=== PATIENT | female | born 1985 | race Caucasian/White ===

== ENCOUNTER 2019-05-21 03:34 | Emergency (ER) | payer MEDICAID ==
[~2019-05-21] VITALS: Ht 167.6 cm; Wt 52.3 kg
[2019-05-21 03:41] VITALS: Ht 167.6 cm; Wt 52.3 kg
[2019-05-21] MEDS ORDERED: ALBUTEROL SULF8.5 GM INH (03:44)
[2019-05-21] MEDS ORDERED: PROPRANOLOL HCL20 MG PO (03:44)
[2019-05-21] MEDS ORDERED: AMOXICILLIN500 M1 PO (03:44)
[2019-05-21 04:27] LABS: BASOPHILS 0.4 % (0-2); EOSINOPHILS 9.1 % (0-7); HEMATOCRIT 38.8 % (36.0-48.0); HEMOGLOBIN 13.4 g/dL (12-16); IMMATURE GRANULOCYTES 0.3 % (0-5); LYMPHOCYTES 32.1 % (15-50); MCH 32.4 pg (26.0-34.0); MCHC 34.5 g/dL (31.0-37.0); MCV 93.7 fL (80.0-100.0); MEAN PLATELET VOLUME 9.1 fL (7.4-10.4); MONOCYTES 7.8 % (2-11); NEUTROPHILS 50.3 % (40-80); RBC 4.14 10x6/uL (4.00-5.40); RDW 12.9 % (11.5-14.5); WBC 7.2 10x3/uL (4.8-10.8)
[2019-05-21 04:33] LABS: PLATELET COUNT 333 10x3/uL (130-400)
[2019-05-21 04:37] LABS: CALC OSMOLALITY 273 mosm/kg (275-300); CALCIUM 8.7 mg/dL (8.5-10.1); CARBON DIOXIDE 28.4 mmol/L (21.0-32.0); CHLORIDE - SERUM 104 mmol/L (98-107); CREATININE - SERUM 0.6 mg/dL (0.6-1.3); GLUCOSE 113 mg/dL (74-106); POTASSIUM - SERUM 3.5 mmol/L (3.5-5.1); SODIUM 138 mmol/L (136-145); UREA NITROGEN 5 mg/dL (7-18); eGFR NON AFRICAN AMERICAN > 90 mL/min (90-120)
[2019-05-21 04:52] LABS: ALBUMIN 3.5 g/dL (3.4-5.0); ALKALINE PHOSPHATASE 64 U/L (46-116); ALT (SGPT) 29 U/L (10-68); BILIRUBIN - TOTAL 0.28 mg/dL (0.2-1.3); PROTEIN - SERUM 7.5 g/dL (6.4-8.2); THYROID STIMULATING HORMONE 2.02 uIU/mL (0.36-3.74)
[2019-05-21 04:56] LABS: TROPONIN-I < 0.017 ng/mL (0.000-0.060)
[2019-05-21 05:23] VITALS: BP 143/95
== END 2019-05-21 05:23 | disposition home or self-care (01) ==
LOC: D.ER 03:34
PROVIDERS: Family Medicine
DX: R07.89 Other chest pain (principal)

== ENCOUNTER 2019-09-07 23:58 | Emergency (ER) | payer MEDICAID ==
[~2019-09-07] VITALS: Ht 167.6 cm; Wt 52.3 kg
[~2019-09-07 23:58] MED LIST: ALBUTEROL SULF8.5 GM INH; AMOXICILLIN500 M1 PO; PROPRANOLOL HCL20 MG PO
[2019-09-08 00:08] VITALS: Ht 167.6 cm; Wt 52.3 kg
[2019-09-08] MEDS ORDERED: AMOXICILLIN875 MG PO (00:38)
[2019-09-08] MEDS ORDERED: STERAPRED DS 1010 MG PO (00:38)
[2019-09-08] MEDS ORDERED: MUCINEX DM ER1 EAC1 PO (00:38)
[2019-09-08 00:55] VITALS: BP 138/94
== END 2019-09-08 00:55 | disposition home or self-care (01) ==
LOC: D.ER 23:58
DX: J40 Bronchitis, not specified as acute or chronic (principal); J06.9 Acute upper respiratory infection, unspecified; Z72.0 Tobacco use; R07.9 Chest pain, unspecified; R06.02 Shortness of breath

== ENCOUNTER 2019-11-26 17:10 | Emergency (ER) | payer MEDICAID ==
[~2019-11-26] VITALS: Ht 167.6 cm; Wt 54.5 kg
[~2019-11-26 17:10] MED LIST changes: +AMOXICILLIN875 MG PO; +MUCINEX DM ER1 EAC1 PO; +STERAPRED DS 1010 MG PO
[2019-11-26 17:17] VITALS: Ht 167.6 cm; Wt 54.5 kg
[2019-11-26 18:27] VITALS: BP 160/91
== END 2019-11-26 18:27 | disposition home or self-care (01) ==
LOC: D.ER 17:10
DX: M25.511 Pain in right shoulder (principal); X58.XXXA Exposure to other specified factors, initial encounter